=== PATIENT | female | born 1960 | race Caucasian/White ===

== ENCOUNTER 2020-04-27 17:30 | Emergency (ER) | payer BC ==
--- NOTE | 2020-04-27 18:04 | EDM.PDOC ---
ED HPI GENERAL MEDICAL PROBLEM - General Chief Complaint: Chest Pain Stated Complaint: RT SIDE PAIN Time Seen by Provider: 04/27/20 18:00 Source of Information: Reports: Patient History Limitations: Reports: No Limitations - History of Present Illness INITIAL COMMENTS - FREE TEXT/NARRATIVE: 59-year-old female who states about 2 weeks ago was being hugged by her son-in- law and he gave her a big bear hug and she felt a crack or pull in her left chest. She went to the clinic that day and apparently had a x-ray performed to look at the ribs on that side and was told that it was "too dark to see anything " they did not see any evidence of a fracture or collapse of her lung at that time. 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 She reports the pain is 7/10 at this point. It is worse with taking deep breaths, palpation and with movement. She has had no cough or hemoptysis. There has been no shortness of breath. No nausea or vomiting. No abdominal pain. She went to the clinic today for a recheck and apparently they did a d- dimer which was elevated to 1.96 and she was sent here for further evaluation. No other tests were done at the clinic. The patient ambulates in without any problems. No leg swelling or leg pains. There are no other associated signs or symptoms. There are no other modifying factors. Onset: Other (2 weeks ago in left chest and moved to right chest 1 week ago) Duration: Constant Location: Reports: Chest (Right-sided chest pain) Quality: Reports: Sharp, Stabbing Severity: Moderate (to severe) Improves with: Reports: Rest Worsens with: Reports: Breathing, Other (Palpation), Movement Context: Reports: Other (As above) Associated Symptoms: Reports: No Other Symptoms (Except as above) Treatments PODIATRY DOCTOR: Reports: Other (see below) (Nothing) Right Chest Pain Score (Numeric/FACES): 7 - Related Data Allergies Allergy/AdvReac Type Severity Reaction Status Date / Time erythromycin base Allergy Hives Verified 04/27/20 17:46 oseltamivir [From Tamiflu] Allergy Hives Verified 04/27/20 17:46 sulfamethoxazole Allergy Hives Verified 04/27/20 17:46 [From Bactrim] trimethoprim [From Bactrim] Allergy Hives Verified 04/27/20 17:46 Home Meds: Home Meds Cyclobenzaprine HCl 10 mg PO BEDTIME 04/27/20 [History] Omeprazole 20 mg PO DAILY 04/27/20 [History] predniSONE 20 mg PO DAILY 04/27/20 [History] Past Medical History HEENT History: Reports: Impaired Vision Endocrine/Metabolic History: Reports: Diabetes, Type II (But she is on no medications and this has not been a problem since her gastric bypass.) - Infectious Disease History Infectious Disease History: Reports: Chicken Pox - Past Surgical History GI Surgical History: Reports: Bariatric Procedure (Gastric bypass surgery) Female Surgical History: Reports: Cystectomy (Ovarian cystectomy), Hysterectomy Social & Family History - Tobacco Use Smoking Status *Q: Never Smoker Second Hand Smoke Exposure: No - Caffeine Use Caffeine Use: Reports: None - Alcohol Use Alcohol Use History: No - Recreational Drug Use Recreational Drug Use: No - Living Situation & Occupation Occupation: Employed (Works at the [employer].) ED ROS GENERAL - Review of Systems Review Of Systems: See Below Constitutional: Reports: No Symptoms HEENT: Reports: No Symptoms Respiratory: Reports: No Symptoms Cardiovascular: Reports: Chest Pain Endocrine: Reports: No Symptoms GI/Abdominal: Reports: No Symptoms : Reports: No Symptoms Musculoskeletal: Reports: No Symptoms Skin: Reports: No Symptoms Neurological: Reports: No Symptoms Hematologic/Lymphatic: Reports: No Symptoms Immunologic: Reports: No Symptoms ED EXAM, GENERAL - Physical Exam Exam: See Below Exam Limited By: No Limitations General Appearance: Alert, WD/WN, No Apparent Distress, Other (No respiratory distress.) Eye Exam: Bilateral Eye: EOMI, Normal Inspection (Sclera are anicteric.), PERRL Ears: Normal External Exam, Hearing Grossly Normal Ear Exam: Bilateral Ear: Auricle Normal Nose: Normal Inspection, Normal Mucosa, No Blood Throat/Mouth: Normal Inspection, Normal Oropharynx, Normal Voice, No Airway Compromise Head: Atraumatic, Normocephalic Neck: Normal Inspection, Supple, Non-Tender, Full Range of Motion Respiratory/Chest: No Respiratory Distress, Lungs Clear, Normal Breath Sounds, No Accessory Muscle Use, Other (Tentative palpation along the right lateral chest at the anterior axillar line just at the base of the breast. There is no crepitus or subcutaneous emphysema.) Cardiovascular: Normal Peripheral Pulses, Regular Rate, Rhythm, No Murmur Peripheral Pulses: 2+: Radial (L), Radial (R), Dorsalis Pedis (L), Dorsalis Pedis (R) GI/Abdominal: Normal Bowel Sounds, Soft, Non-Tender Back Exam: Normal Inspection, Full Range of Motion Extremities: Normal Inspection, Normal Range of Motion, Non-Tender, No Pedal Edema, Normal Capillary Refill Neurological: Alert, Oriented, CN II-XII Intact, Normal Cognition, No Motor/ Sensory Deficits Skin Exam: Warm, Dry, Intact, Normal Color, No Rash EKG INTERPRETATION EKG Date: 04/27/20 Time: 18:09 Rhythm: NSR Rate (Beats/Min): 72 [place]: Normal P-Wave: Present QRS: Normal ST-T: Normal QT: Normal Comparison: NA - No Prior EKG (Normal EKG.) Course - Vital Signs Last Recorded V/S: Last Vital Signs Temp 36.6 C 04/27/20 19:50 Pulse 77 04/27/20 19:50 Resp 22 H 04/27/20 19:50 BP 122/72 04/27/20 19:50 Pulse Ox 100 04/27/20 19:50 - Orders/Labs/Meds Orders: Active Orders 24 hr Category Date Time Status EKG Documentation Completion [RC] ASDIRECTED Care 04/27/20 18:13 Active Ang Chest [CT] Stat Exams 04/27/20 18:39 Taken Peripheral IV Insertion Adult [OM.PC] Routine Oth 04/27/20 18:13 Ordered EKG 12 Lead [EK] Routine Ther 04/27/20 18:13 Ordered Labs: Laboratory Tests 04/27/20 04/27/20 Range/Units 18:25 18:25 Sodium 140 (135-145) mmol/L Potassium 4.2 (3.5-5.3) mmol/L Chloride 103 (100-110) mmol/L Carbon Dioxide 26 (21-32) mmol/L BUN 21 H (7-18) mg/dL Creatinine 0.9 (0.55-1.02) mg/dL Est Cr Clr Drug Dosing 57.05 mL/min Estimated GFR (MDRD) > 60 (>60) BUN/Creatinine Ratio 23.3 H (9-20) Glucose 104 (80-116) mg/dL Calcium 9.2 (8.6-10.2) mg/dL Troponin I 4.9 (4.0-60.3) pg/mL Meds: Medications Discontinued Medications Generic Name Dose Route Start Last Admin Trade Name Freq PRN Reason Stop Dose Admin Sodium Chloride 500 mls @ 999 mls/hr 04/27/20 18:14 04/27/20 18:26 Normal Saline IV 04/27/20 18:44 999 mls/hr .BOLUS ONE Administration Iopamidol 100 ml 04/27/20 18:42 04/27/20 19:20 Isovue-370 (76%) IV 04/27/20 18:43 80 ml . DIRECTED ONE Administration Sodium Chloride 10 ml 04/27/20 18:13 Saline Flush FLUSH ASDIRECTED PRN Keep Vein Open - Re-Assessments/Exams Free Text/Narrative Re-Assessment/Exam: 04/27/20 19:20: Patient is a normal EKG. Her troponin was normal. Her BUN and creatinine and electrolytes were normal. CTA of the chest has been performed and the results are pending at this time. At this point I will be turning the patient over to Dr. Piedra. The patient's disposition will be based on the data that is pending at this point. Disposition per Dr. Ortega. Departure - Departure Time of Disposition: 19:20 Disposition: Home, Self-Care 01 Condition: Good Clinical Impression: Right-sided chest pain, Elevated d-dimer Instructions: Chest Wall Pain, [id number] Referrals: Basil Hawkins MD [Primary Care Provider] - Forms: ED Department Discharge Care Plan Goals: Continue taking tylenol for pain. Follow up with Elyssa on Friday. Sepsis Event Note - Evaluation Sepsis Screening Result: No Definite Risk - Focused Exam Date Exam was Performed: 04/28/20 Time Exam was Performed: 14:13 - My Orders Last 24 Hours: My Active Orders 04/27/20 18:13 EKG Documentation Completion [RC] ASDIRECTED Peripheral IV Insertion Adult [OM.PC] Routine EKG 12 Lead [EK] Routine 04/27/20 18:39 Ang Chest [CT] Stat - Assessment/Plan Last 24 Hours: My Active Orders 04/27/20 18:13 EKG Documentation Completion [RC] ASDIRECTED Peripheral IV Insertion Adult [OM.PC] Routine EKG 12 Lead [EK] Routine 04/27/20 18:39 Ang Chest [CT] Stat
[2020-04-27] MEDS ORDERED: Sodium Chloride 0.9% 10 ML Syringe FLUSH PRN (18:13)
[2020-04-27] MEDS ORDERED: Sodium Chloride 0.9% 500 ML IV ONE (18:14)
[2020-04-27] MEDS ORDERED: Iopamidol 755 Mg/ML 100 ML Bottle IV ONE (18:42)
== END 2020-04-27 19:50 | disposition home or self-care (01) ==
LOC: FB.ED 17:30
DX: R07.9 Chest pain, unspecified (principal); R79.1 Abnormal coagulation profile; Z88.1 Allergy status to other antibiotic agents; Z88.2 Allergy status to sulfonamides
CPT/HCPCS: 36415; 71275; 80048; 84484; 93005; 99285; J7040; Q9967

== ENCOUNTER 2020-06-01 02:35 | Emergency (ER) | payer BC ==
[2020-06-01] MEDS ORDERED: Sodium Chloride 0.9% 10 ML Syringe FLUSH PRN (02:55)
[2020-06-01] MEDS ORDERED: Morphine 4 MG/ML VIAL IVPUSH ONE (02:57)
[2020-06-01] MEDS ORDERED: Ondansetron 4 MG/2 ML SDV IVPUSH ONE (02:57)
[2020-06-01] MEDS ORDERED: Sodium Chloride 0.9% 1,000 ML IV SCH (03:00)
--- NOTE | 2020-06-01 03:12 | EDM.PDOC ---
ED HPI GENERAL MEDICAL PROBLEM - General Chief Complaint: Abdominal Pain Stated Complaint: ABDOMINAL PAIN/VOMITTING Time Seen by Provider: 06/01/20 02:50 Source of Information: Reports: Patient History Limitations: Reports: No Limitations - History of Present Illness INITIAL COMMENTS - FREE TEXT/NARRATIVE: Patient presented to the ED because of abdominal pain,N/V which started at 2230 after eating pizza. The pain is stabbing, 10/10 over the LUQ. She has good bowel movement yesterday which was normal. Denies any dysuria,urgency, and frequency. UPPER LEFT ABD Pain Score (Numeric/FACES): 9 - Related Data Allergies Allergy/AdvReac Type Severity Reaction Status Date / Time erythromycin base Allergy Hives Verified 04/27/20 17:46 oseltamivir [From Tamiflu] Allergy Hives Verified 04/27/20 17:46 sulfamethoxazole Allergy Hives Verified 04/27/20 17:46 [From Bactrim] trimethoprim [From Bactrim] Allergy Hives Verified 04/27/20 17:46 Home Meds: Home Meds Omeprazole 20 mg PO DAILY 04/27/20 [History] Acetaminophen/oxyCODONE [Percocet 325-5 MG] 1 each PO Q4H PRN #10 tab 06/01/20 [Rx] Calcium Carbonate/Vitamin D3 [Caltrate 600 Plus D3 Tablet] 1 tab PO DAILY 06/01/20 [History] Docusate Sodium [Colace] 100 mg PO DAILY 06/01/20 [History] Ondansetron [Zofran ODT] 4 mg PO Q4H PRN #4 tab.dis 06/01/20 [Rx] Tamsulosin [Tamsulosin 24 Hr] 0.4 mg PO DAILY #10 cap.er 06/01/20 [Rx] Past Medical History HEENT History: Reports: Impaired Vision Respiratory History: Reports: None Gastrointestinal History: Reports: None [employer] History: Reports: Musculoskeletal History: Reports: Fracture Other Musculoskeletal History: Leg and arm fracture when young. Neurological History: Reports: Concussion Endocrine/Metabolic History: Reports: Diabetes, Type II (But she is on no medications and this has not been a problem since her gastric bypass.) Immunologic History: Reports: None - Infectious Disease History Infectious Disease History: Reports: Chicken Pox - Past Surgical History GI Surgical History: Reports: Bariatric Procedure (Gastric bypass surgery) Female Surgical History: Reports: Cystectomy (Ovarian cystectomy), Hysterectomy Social & Family History - Family History Family Medical History: Noncontributory - Caffeine Use Caffeine Use: Reports: None - Living Situation & Occupation Occupation: Employed (Works at the [employer].) ED ROS GENERAL - Review of Systems Review Of Systems: See Below Constitutional: Reports: No Symptoms HEENT: Reports: No Symptoms Respiratory: Reports: No Symptoms Cardiovascular: Reports: No Symptoms Endocrine: Reports: No Symptoms GI/Abdominal: Reports: Abdominal Pain, Nausea, Vomiting : Reports: No Symptoms Musculoskeletal: Reports: No Symptoms Skin: Reports: No Symptoms Neurological: Reports: No Symptoms Psychiatric: Reports: No Symptoms Hematologic/Lymphatic: Reports: No Symptoms Immunologic: Reports: No Symptoms ED EXAM, GI/ABD - Physical Exam Exam: See Below Exam Limited By: No Limitations General Appearance: Alert, No Apparent Distress Ears: Normal External Exam, Normal [place] Nose: Normal Inspection, Normal Mucosa, No Blood Throat/Mouth: Normal Inspection, Normal Lips, Normal Teeth Head: Atraumatic, Normocephalic Neck: Normal Inspection, Supple, Non-Tender, Full Range of Motion Respiratory/Chest: No Respiratory Distress, Lungs Clear, Normal Breath Sounds Cardiovascular: Normal Peripheral Pulses, Regular Rate, Rhythm, No Edema, No Gallop, No JVD, No Murmur GI/Abdominal Exam: Normal Bowel Sounds, No Organomegaly, No Distention, Other (tenderness LUQ) Back Exam: Normal Inspection, Full Range of Motion Extremities: Normal Inspection Neurological: Alert, Oriented, CN II-XII Intact Psychiatric: Normal Affect Skin Exam: Warm, Dry, Intact, Normal Color Course - Vital Signs Text/Narrative:: Labs/CT-abd/pelvis was discussed with patient and verbalized full understanding NS 1 L bolus Zofran 4 mg IV x1 Morphine 4 mg IV x1 Toradol 30 mg IV x1 Last Recorded V/S: Last Vital Signs Temp 37.3 C 06/01/20 02:45 Pulse 62 06/01/20 02:45 Resp 20 06/01/20 02:45 BP 123/52 L 06/01/20 02:45 Pulse Ox 100 06/01/20 02:45 - Orders/Labs/Meds Orders: Active Orders 24 hr Category Date Time Status Abdomen Pelvis w Cont [CT] Stat Exams 06/01/20 03:06 Ordered Sodium Chloride 0.9% [Normal Saline] 1,000 ml Med 06/01/20 03:00 Active IV ASDIRECTED Sodium Chloride 0.9% [Saline Flush] Med 06/01/20 02:55 Active 10 ml FLUSH ASDIRECTED PRN Saline Lock Insert [OM.PC] Routine Oth 06/01/20 02:55 Ordered Medication Orders Sodium Chloride (Normal Saline) 1,000 mls @ 999 mls/hr IV ASDIRECTED RAY Last Admin: 06/01/20 03:05 Dose: 999 mls/hr Documented by: KP Sodium Chloride (Saline Flush) 10 ml FLUSH ASDIRECTED PRN PRN Reason: Keep Vein Open Last Admin: 06/01/20 02:50 Dose: 10 ml Documented by: KP Labs: Laboratory Tests 06/01/20 06/01/20 06/01/20 Range/Units 03:05 03:05 03:05 WBC 8.8 (4.5-12.0) X10-3/uL RBC 4.65 (3.23-5.20) x10(6)uL Hgb 13.4 (11.5-15.5) g/dL Hct 41.3 (30.0-51.3) % MCV 88.8 (80-96) fL MCH 28.9 (27.7-33.6) pg MCHC 32.5 (32.2-35.4) g/dL RDW 12.7 (11.5-15.5) % Plt Count 271 (125-369) X10(3)uL MPV 7.5 (7.4-10.4) fL Neutrophils % (Manual) 81 (46-82) % Band Neutrophils % 1 (0-6) % Lymphocytes % (Manual) 14 (13-37) % Monocytes % (Manual) 4 (4-12) % Sodium 139 (135-145) mmol/L Potassium 3.6 (3.5-5.3) mmol/L Chloride 103 (100-110) mmol/L Carbon Dioxide 26 (21-32) mmol/L BUN 19 H (7-18) mg/dL Creatinine 1.1 H (0.55-1.02) mg/dL Est Cr Clr Drug Dosing 46.11 mL/min Estimated GFR (MDRD) 51 L (>60) BUN/Creatinine Ratio 17.3 (9-20) Glucose 201 H D (80-116) mg/dL Calcium 9.5 (8.6-10.2) mg/dL Total Bilirubin 0.6 (0.1-1.3) mg/dL AST 22 (5-25) IU/L ALT 17 (12-36) U/L Alkaline Phosphatase 136 H (56-112) IU/L Total Protein 7.7 (6.0-8.0) g/dL Albumin 4.2 (3.5-5.2) g/dL Globulin 3.5 g/dL Albumin/Globulin Ratio 1.2 Amylase 71 (25-115) U/L Lipase 136 (73-393) U/L Urine Color (YELLOW) Urine Appearance (CLEAR) Urine pH (5.0-6.5) Ur Specific [place] (1.010-1.025) Urine Protein (NEGATIVE) mg/dL Urine Glucose (UA) (NORMAL) mg/dL Urine Ketones (NEGATIVE) mg/dL Urine Occult Blood (NEGATIVE) Urine Nitrite (NEGATIVE) Urine Bilirubin (NEGATIVE) Urine Urobilinogen (NEGATIVE) mg/dL Ur Leukocyte Esterase (NEGATIVE) Urine RBC (0-5) Urine WBC (0-5) Ur Squamous Epith Cells (NS,R,O) Urine Bacteria (NS) 06/01/20 Range/Units 04:00 WBC (4.5-12.0) X10-3/uL RBC (3.23-5.20) x10(6)uL Hgb (11.5-15.5) g/dL Hct (30.0-51.3) % MCV (80-96) fL MCH (27.7-33.6) pg MCHC (32.2-35.4) g/dL RDW (11.5-15.5) % Plt Count (125-369) X10(3)uL MPV (7.4-10.4) fL Neutrophils % (Manual) (46-82) % Band Neutrophils % (0-6) % Lymphocytes % (Manual) (13-37) % Monocytes % (Manual) (4-12) % Sodium (135-145) mmol/L Potassium (3.5-5.3) mmol/L Chloride (100-110) mmol/L Carbon Dioxide (21-32) mmol/L BUN (7-18) mg/dL Creatinine (0.55-1.02) mg/dL Est Cr Clr Drug Dosing mL/min Estimated GFR (MDRD) (>60) BUN/Creatinine Ratio (9-20) Glucose (80-116) mg/dL Calcium (8.6-10.2) mg/dL Total Bilirubin (0.1-1.3) mg/dL AST (5-25) IU/L ALT (12-36) U/L Alkaline Phosphatase (56-112) IU/L Total Protein (6.0-8.0) g/dL Albumin (3.5-5.2) g/dL Globulin g/dL Albumin/Globulin Ratio Amylase (25-115) U/L Lipase (73-393) U/L Urine Color Yellow (YELLOW) Urine Appearance Slightly cloudy (CLEAR) Urine pH 6.0 (5.0-6.5) Ur Specific [place] 1.015 (1.010-1.025) Urine Protein Negative (NEGATIVE) mg/dL Urine Glucose (UA) Normal (NORMAL) mg/dL Urine Ketones 15 H (NEGATIVE) mg/dL Urine Occult Blood Large H (NEGATIVE) Urine Nitrite Negative (NEGATIVE) Urine Bilirubin Small H (NEGATIVE) Urine Urobilinogen Normal (NEGATIVE) mg/dL Ur Leukocyte Esterase Negative (NEGATIVE) Urine RBC >100 H (0-5) Urine WBC 0-5 (0-5) Ur Squamous Epith Cells Few H (NS,R,O) Urine Bacteria Few H (NS) Meds: Medications Generic Name Dose Route Start Last Admin Trade Name Freq PRN Reason Stop Dose Admin Sodium Chloride 1,000 mls @ 999 mls/hr 06/01/20 03:00 06/01/20 03:05 Normal Saline IV 999 mls/hr ASDIRECTED RAY Administration Sodium Chloride 10 ml 06/01/20 02:55 06/01/20 02:50 Saline Flush FLUSH 10 ml ASDIRECTED PRN Administration Keep Vein Open Discontinued Medications Generic Name Dose Route Start Last Admin Trade Name Freq PRN Reason Stop Dose Admin Iopamidol 100 ml 06/01/20 03:50 06/01/20 04:00 Isovue-370 (76%) IV 06/01/20 03:51 99 ml ONETIME ONE Administration Ketorolac Tromethamine 30 mg 06/01/20 03:46 06/01/20 03:49 Toradol IVPUSH 06/01/20 03:47 30 mg ONETIME ONE Administration Ketorolac Tromethamine Confirm 06/01/20 03:47 06/01/20 03:50 Toradol Administered 06/01/20 03:48 Not Given Dose 30 mg .ROUTE .STK-MED ONE Morphine Sulfate 4 mg 06/01/20 02:57 06/01/20 03:08 Morphine IVPUSH 06/01/20 02:58 4 mg ONETIME ONE Administration Ondansetron HCl 4 mg 06/01/20 02:57 06/01/20 03:05 Zofran IVPUSH 06/01/20 02:58 4 mg ONETIME ONE Administration Departure - Departure Time of Disposition: 05:00 Disposition: Home, Self-Care 01 Condition: Good Clinical Impression: Nephrolithiasis - Discharge Information Prescriptions: Tamsulosin [Tamsulosin 24 Hr] 0.4 mg PO DAILY #10 cap.er Acetaminophen/oxyCODONE [Percocet 325-5 MG] 1 each PO Q4H PRN #10 tab PRN Reason: Pain Ondansetron [Zofran ODT] 4 mg PO Q4H PRN #4 tab.dis PRN Reason: Nausea Referrals: Basil Hawkins MD [Primary Care Provider] - Forms: ED Department Discharge Sepsis Event Note (ED) - Evaluation Sepsis Screening Result: No Definite Risk - Focused Exam Vital Signs: Vital Signs Temp Pulse Resp BP Pulse Ox 06/01/20 02:45 37.3 C 62 20 123/52 L 100 - My Orders Last 24 Hours: My Active Orders 06/01/20 02:55 Sodium Chloride 0.9% [Saline Flush] 10 ml FLUSH ASDIRECTED PRN Saline Lock Insert [OM.PC] Routine 06/01/20 03:00 Sodium Chloride 0.9% [Normal Saline] 1,000 ml IV ASDIRECTED 06/01/20 03:06 Abdomen Pelvis w Cont [CT] Stat - Assessment/Plan Last 24 Hours: My Active Orders 06/01/20 02:55 Sodium Chloride 0.9% [Saline Flush] 10 ml FLUSH ASDIRECTED PRN Saline Lock Insert [OM.PC] Routine 06/01/20 03:00 Sodium Chloride 0.9% [Normal Saline] 1,000 ml IV ASDIRECTED 06/01/20 03:06 Abdomen Pelvis w Cont [CT] Stat
[2020-06-01] MEDS ORDERED: Ketorolac 30 MG/ML SDV IVPUSH ONE (03:46)
[2020-06-01] MEDS ORDERED: Ketorolac 30 MG/ML SDV ONE (03:47)
[2020-06-01] MEDS ORDERED: Iopamidol 755 Mg/ML 100 ML Bottle IV ONE (03:50)
== END 2020-06-01 05:00 | disposition home or self-care (01) ==
LOC: FB.ED 02:35
DX: N20.0 Calculus of kidney (principal); E11.9 Type 2 diabetes mellitus without complications; Z79.899 Other long term (current) drug therapy; Z88.1 Allergy status to other antibiotic agents; Z88.2 Allergy status to sulfonamides; Z88.3 Allergy status to other anti-infective agents
CPT/HCPCS: 36415; 74177; 80053; 81001; 82150; 83690; 85025; 96361; 96374; 96375; 99283; 99284; J1885; J2270; J2405; J7030; Q9967

== ENCOUNTER 2020-06-03 06:19 | Emergency (ER) | payer BC ==
[2020-06-03] MEDS ORDERED: Ondansetron 4 MG/2 ML SDV IVPUSH ONE (06:29)
[2020-06-03] MEDS ORDERED: Ketorolac 30 MG/ML SDV IVPUSH ONE (06:29)
[2020-06-03] MEDS ORDERED: Sodium Chloride 0.9% 1,000 ML IV SCH (06:30)
--- NOTE | 2020-06-03 07:50 | EDM.PDOC ---
ED HPI GENERAL MEDICAL PROBLEM - General Chief Complaint: Genitourinary Problem Stated Complaint: KIDNEY STONE Time Seen by Provider: 06/03/20 06:40 Source of Information: Reports: Patient History Limitations: Reports: No Limitations - History of Present Illness INITIAL COMMENTS - FREE TEXT/NARRATIVE: pt c/o sever left flank pain with nausea and urinary urgency, she has been jiménez ving this for 2 days, was seen here 2 days ago had a CT showing a 2mm stone at [facility] , she has been taking Percocet and Zofran at home, pt denies fever, chills or any other associated sx with this or any other medical concerns. left flank Pain Score (Numeric/FACES): 5 - Related Data Allergies Allergy/AdvReac Type Severity Reaction Status Date / Time erythromycin base Allergy Hives Verified 04/27/20 17:46 oseltamivir [From Tamiflu] Allergy Hives Verified 04/27/20 17:46 sulfamethoxazole Allergy Hives Verified 04/27/20 17:46 [From Bactrim] trimethoprim [From Bactrim] Allergy Hives Verified 04/27/20 17:46 Home Meds: Home Meds Omeprazole 20 mg PO DAILY 04/27/20 [History] Acetaminophen/oxyCODONE [Percocet 325-5 MG] 1 each PO Q4H PRN #10 tab 06/01/20 [Rx] Calcium Carbonate/Vitamin D3 [Caltrate 600 Plus D3 Tablet] 1 tab PO DAILY 06/01/20 [History] Docusate Sodium [Colace] 100 mg PO DAILY 06/01/20 [History] Ondansetron [Zofran ODT] 4 mg PO Q4H PRN #4 tab.dis 06/01/20 [Rx] Tamsulosin [Tamsulosin 24 Hr] 0.4 mg PO DAILY #10 cap.er 06/01/20 [Rx] Past Medical History HEENT History: Reports: Impaired Vision Respiratory History: Reports: None Gastrointestinal History: Reports: None Genitourinary History: Reports: Other (See Below) Other Genitourinary History: kidney stones [employer] History: Reports: Musculoskeletal History: Reports: Fracture Other Musculoskeletal History: Leg and arm fracture when young. Neurological History: Reports: Concussion Endocrine/Metabolic History: Reports: Diabetes, Type II Immunologic History: Reports: None - Infectious Disease History Infectious Disease History: Reports: Chicken Pox - Past Surgical History GI Surgical History: Reports: Bariatric Procedure Female Surgical History: Reports: Cystectomy, Hysterectomy Oncologic Surgical History: Reports: None Social & Family History - Family History Family Medical History: Noncontributory - Tobacco Use Smoking Status *Q: Never Smoker - Caffeine Use Caffeine Use: Reports: None - Recreational Drug Use Recreational Drug Use: No - Living Situation & Occupation Occupation: Employed (Works at the [employer] ED ROS GENERAL - Review of Systems Review Of Systems: See Below Constitutional: Reports: No Symptoms HEENT: Reports: No Symptoms Respiratory: Reports: No Symptoms Cardiovascular: Reports: No Symptoms GI/Abdominal: Reports: No Symptoms, Nausea. Denies: Vomiting : Reports: Flank Pain, Urgency. Denies: Dysuria, Frequency Musculoskeletal: Reports: Back Pain Skin: Reports: No Symptoms Neurological: Reports: No Symptoms ED EXAM, GENERAL - Physical Exam Exam: See Below Exam Limited By: No Limitations General Appearance: Alert, Moderate Distress Respiratory/Chest: No Respiratory Distress, Lungs Clear Cardiovascular: Normal Peripheral Pulses, Regular Rate, Rhythm GI/Abdominal: Normal Bowel Sounds, Soft, Non-Tender Back Exam: Full Range of Motion, CVA Tenderness (R) Extremities: Normal Inspection Neurological: Alert, CN II-XII Intact Course - Vital Signs Text/Narrative:: pt feels comfortable after Toradol, zofran and fluids . she has not passed her stone yet and pt to continue with Flomax and her Percocet, i did advise her to use Motrin 600 mg TID PRN as antiinflamatories work better in her case... pt to follow with PCP o Friday for re-check. Last Recorded V/S: Last Vital Signs Temp 36.6 C 06/03/20 06:29 Pulse 99 06/03/20 06:29 Resp 15 06/03/20 06:29 BP 132/58 L 06/03/20 06:29 Pulse Ox 98 06/03/20 06:29 - Orders/Labs/Meds Orders: Active Orders 24 hr Category Date Time Status UA W/MICROSCOPIC [URIN] Stat Lab 06/03/20 06:29 Ordered Sodium Chloride 0.9% [Normal Saline] 1,000 ml Med 06/03/20 06:30 Active IV ASDIRECTED Medication Orders Sodium Chloride (Normal Saline) 1,000 mls @ 999 mls/hr IV ASDIRECTED RAY Last Admin: 06/03/20 06:48 Dose: 999 mls/hr Documented by: MACARENA Labs: Laboratory Tests 06/03/20 06/03/20 Range/Units 06:42 06:42 WBC 8.8 (4.5-12.0) X10-3/uL RBC 4.42 (3.23-5.20) x10(6)uL Hgb 12.8 (11.5-15.5) g/dL Hct 39.7 (30.0-51.3) % MCV 89.8 (80-96) fL MCH 29.0 (27.7-33.6) pg MCHC 32.2 (32.2-35.4) g/dL RDW 12.4 (11.5-15.5) % Plt Count 200 (125-369) X10(3)uL MPV 7.4 (7.4-10.4) fL Neut % (Auto) 83.3 H (46-82) % Lymph % (Auto) 9.9 L (13-37) % [place] % (Auto) 6.3 (4-12) % Eos % (Auto) 1 (1.0-5.0) % Baso % (Auto) 0 (0-2) % Neut # (Auto) 7.3 (1.6-8.3) # Lymph # (Auto) 0.9 (0.6-5.0) # [place] # (Auto) 0.6 (0.0-1.3) # Eos # (Auto) 0.0 (0.0-0.8) # Baso # (Auto) 0.0 (0.0-0.2) # Sodium 139 (135-145) mmol/L Potassium 3.9 (3.5-5.3) mmol/L Chloride 103 (100-110) mmol/L Carbon Dioxide 26 (21-32) mmol/L BUN 18 (7-18) mg/dL Creatinine 1.4 H (0.55-1.02) mg/dL Est Cr Clr Drug Dosing 36.23 mL/min Estimated GFR (MDRD) 39 L (>60) BUN/Creatinine Ratio 12.9 (9-20) Glucose 138 H (80-116) mg/dL Calcium 9.2 (8.6-10.2) mg/dL Meds: Medications Generic Name Dose Route Start Last Admin Trade Name Freq PRN Reason Stop Dose Admin Sodium Chloride 1,000 mls @ 999 mls/hr 06/03/20 06:30 06/03/20 06:48 Normal Saline IV 999 mls/hr ASDIRECTED RAY Administration Discontinued Medications Generic Name Dose Route Start Last Admin Trade Name Freq PRN Reason Stop Dose Admin Ketorolac Tromethamine 30 mg 06/03/20 06:29 06/03/20 06:48 Toradol IVPUSH 06/03/20 06:30 30 mg ONETIME ONE Administration Ondansetron HCl 8 mg 06/03/20 06:29 06/03/20 06:48 Zofran IVPUSH 06/03/20 06:30 8 mg ONETIME ONE Administration Departure - Departure Time of Disposition: 07:50 Disposition: Home, Self-Care 01 Clinical Impression: Kidney stone - Discharge Information Referrals: Basil Hawkins MD [Primary Care Provider] - Sepsis Event Note (ED) - Evaluation Sepsis Screening Result: No Definite Risk - Focused Exam Vital Signs: Vital Signs Temp Pulse Resp BP Pulse Ox 06/03/20 06:29 36.6 C 99 15 132/58 L 98
[2020-06-03] MEDS ORDERED: HYDROmorphone 2 MG/ML SDV IVPUSH ONE (08:06)
[2020-06-03] MEDS ORDERED: Sodium Chloride 0.9% 10 ML Syringe FLUSH PRN (08:17)
== END 2020-06-03 08:29 | disposition home or self-care (01) ==
LOC: FB.ED 06:19
DX: N20.0 Calculus of kidney (principal); E11.9 Type 2 diabetes mellitus without complications; Z88.1 Allergy status to other antibiotic agents; Z88.2 Allergy status to sulfonamides; Z79.899 Other long term (current) drug therapy
CPT/HCPCS: 36415; 80048; 81001; 85025; 96361; 96374; 96375; 99283; 99284; J1170; J1885; J2405; J7030